=== PATIENT | female | born 1980 | race Two or more races ===

== ENCOUNTER 2018-12-19 08:56 | Emergency (ER) | payer OTHER ==
[~2018-12-19] VITALS: Ht 162.6 cm; Wt 54.0 kg
[2018-12-19 09:04] VITALS: BP 98/50
[2018-12-19] MEDS ORDERED: KETOROLAC TROMETHAMINE INJ 60 MG/2 ML VIAL IM ONE ×2 (09:37→10:00)
--- NOTE | 2018-12-19 09:50 | NUR ---
PT STATED THERE IS NO CHANCE OF , PT SIGNED WAIVER.
--- NOTE | 2018-12-19 10:14 | NUR ---
Patient discharged to home in stable condition. Written and verbal after care instructions given. Patient verbalizes understanding of instruction.
== END 2018-12-19 10:15 | disposition home or self-care (01) ==
LOC: ER 09:07
DX: S29.012A Strain of muscle and tendon of back wall of thorax, initial encounter (principal); X50.1XXA Overexertion from prolonged static or awkward postures, initial encounter; Y93.89 Activity, other specified; Y92.89 Other specified places as the place of occurrence of the external cause; Y99.8 Other external cause status
CPT/HCPCS: 96372; 99283; J1885